=== PATIENT | female | born 1975 | race Caucasian/White ===

== ENCOUNTER 2025-03-20 20:00 | Emergency (ER) | payer MEDICAID ==
[~2025-03-20] VITALS: Ht 175.3 cm; Wt 86.4 kg
[~2025-03-20 20:00] MED LIST: HYDR4; LORA10TA7; XANAX
[2025-03-20 20:10] VITALS: TEMP 97.2
[2025-03-20 21:28] LABS: PLATELET COUNT (AUTO) 276 K/uL (150-450); RED BLOOD CELL COUNT(AUTO) 4.37 MIL/uL (4.00-5.20); RED CELL DISTRIBUTION WIDTH 14.4 % (11.5-14.5); WHITE BLOOD COUNT (AUTO) 7.6 K/uL (4.5-11.0)
[2025-03-20] MEDS ORDERED: MORPHINE SULFATE 2 MG/ML SYRINGE IVP ONE ×2 (21:30→22:45)
[2025-03-20 21:37] LABS: CALCIUM, TOTAL 8.8 mg/dL (8.8-10.5); CREATININE 0.67 mg/dL (0.60-1.30); GLOMERULAR FILTR. RATE CALC > 60 mL/min (>60); GLUCOSE,RANDOM 90 mg/dL (70-110); SODIUM SERUM 141 mmol/L (136-145); UREA NITROGEN, BLOOD 23 mg/dL (7-18)
[2025-03-20 21:45] LABS: ASPARTATE AMINOTRANSFERASE 18.0 U/L (15-37); TOTAL PROTEIN, SERUM 7.4 g/dL (6.4-8.2)
[2025-03-20] MEDS: ONDANSETRON HCL 4 MG/2 ML VIAL IVP ONE (21:54)
[2025-03-20] MEDS: KETOROLAC TROMETHAMINE 30 MG/ML VIAL IVP ONE (21:54)
[2025-03-20] MEDS: SODIUM CHLORIDE 0.9% 1,000 ML IV ONE (22:51)
[2025-03-20] MEDS: METOCLOPRAMIDE HCL 5 MG/ML 2 ML VIAL IVP ONE (22:51)
[2025-03-20 23:30] VITALS: BP 97/64; PULSE 87; RESP 18; O2SAT 98
[2025-03-21] MEDS ORDERED: POLY17PO62 PO (00:22)
== END 2025-03-21 00:39 | disposition home or self-care (01) ==
LOC: EMS 20:01
DX: R10.32 Left lower quadrant pain (principal); Z90.710 Acquired absence of both cervix and uterus; Z90.49 Acquired absence of other specified parts of digestive tract; Z85.43 Personal history of malignant neoplasm of ovary; Z88.0 Allergy status to penicillin; Z79.899 Other long term (current) drug therapy
CPT/HCPCS: 99285; 74176; 96374; 96361; 96375; 80048; 80076; 83690; 84703; 85025; 36415; 93005; J1171; J2765; J2405; J7030; J2270